=== PATIENT | female | born 1980 | race Caucasian/White ===

== ENCOUNTER 2020-11-11 23:11 | Emergency (ER) | payer OTHER ==
[~2020-11-11] VITALS: Ht 180.3 cm; Wt 126.8 kg
[2020-11-11 23:21] VITALS: Ht 180.3 cm; Wt 126.8 kg
[2020-11-11] MEDS ORDERED: COZAAR25 MG PO (23:22)
[2020-11-12 00:25] LABS: BASOPHILS 0.2 % (0-2); EOSINOPHILS 1.2 % (0-7); HEMATOCRIT 33.5 % (36.0-48.0); HEMOGLOBIN 10.3 g/dL (12-16); IMMATURE GRANULOCYTES 0.1 % (0-5); LYMPHOCYTE ABS# 2.04 10x3/uL (1.18-3.74); LYMPHOCYTES 20.6 % (15-50); MCH 22.6 pg (26.0-34.0); MCHC 30.7 g/dL (31.0-37.0); MCV 73.5 fL (80.0-100.0); MEAN PLATELET VOLUME 8.7 fL (7.4-10.4); NEUTROPHIL ABS# 7.11 10x3/uL (1.56-6.13); NEUTROPHILS 71.9 % (40-80); PLATELET COUNT 326 10x3/uL (130-400); RBC 4.56 10x6/uL (4.00-5.40); RDW 16.1 % (11.5-14.5); WBC 9.9 10x3/uL (4.8-10.8)
[2020-11-12 00:32] LABS: CALC OSMOLALITY 280 mosm/kg (275-300); CALCIUM 8.8 mg/dL (8.5-10.1); CARBON DIOXIDE 28.1 mmol/L (21.0-32.0); CHLORIDE - SERUM 107 mmol/L (98-107); CREATININE - SERUM 0.8 mg/dL (0.6-1.3); GLUCOSE 114 mg/dL (74-106); POTASSIUM - SERUM 3.6 mmol/L (3.5-5.1); SODIUM 140 mmol/L (136-145); UREA NITROGEN 14 mg/dL (7-18); eGFR NON AFRICAN AMERICAN 84 mL/min (90-120)
[2020-11-12 00:38] LABS: ALBUMIN 3.5 g/dL (3.4-5.0); ALKALINE PHOSPHATASE 76 U/L (30-120); ALT (SGPT) 19 U/L (10-68); BILIRUBIN - TOTAL 0.11 mg/dL (0.2-1.3); LIPASE 163 U/L (73-393); MAGNESIUM - SERUM 1.9 mg/dL (1.8-2.4); PROTEIN - SERUM 6.9 g/dL (6.4-8.2); TROPONIN-I < 0.017 ng/mL (0.000-0.060)
[2020-11-12 01:24] VITALS: BP 148/71
== END 2020-11-12 01:24 | disposition home or self-care (01) ==
LOC: D.ER 23:11
PROVIDERS: Family Medicine
DX: R07.89 Other chest pain (principal); I10 Essential (primary) hypertension